=== PATIENT | female | born 1980 | race Caucasian/White ===

== ENCOUNTER → 2017-12-25 12:21 | Outpatient (CLI) | payer BC, SELFPAY ==
--- NOTE | 2017-12-25 12:24 | XR_ITS ---
XR ankle LT min 3V HISTORY: Pain ITS.REASON: surgery on left distal fibular 2013/ having pain. ORDERING PHYSICIAN: Harjinder Quezada MD PATIENT AGE: 37 years Comparison: 01/03/2013 FINDINGS: No acute fracture or dislocation is evident. There is a longitudinal screw within the distal aspect of the fibula as before. There is a faint zone of lucency along the proximal aspect of the screw not readily apparent on the previous exam which could indicate some mild loosening. Study is otherwise unremarkable. IMPRESSION: Faint zone of lucency along the proximal aspect of the screw within the distal fibula nonspecific but may be seen with loosening or infection.
[2017-12-25 14:23] LABS: Basophils % 0.4 % (0.1-2.0); Eosinophils # 0.2 K/mm3 (0.0-0.4); Eosinophils % 2.3 % (0.1-12.0); Hematocrit 40.9 % (37.0-47.0); Hemoglobin 13.7 g/dL (12.2-16.2); Lymphocytes # 2.5 K/mm3 (0.7-4.5); Lymphocytes % 34.5 K/mm3 (10-50); Mean Corpuscular HGB Conc 33.6 g/dL (31.8-35.4); Mean Corpuscular Hemoglobin 30.8 pg (27.0-31.2); Mean Corpuscular Volume 91.8 fl (81-99); Mean Platelet Volume 7.2 fl (7.4-10.4); Monocytes # 0.3 K/mm3 (0.1-1.0); Monocytes % 4.7 % (1.7-9.3); Neutrophils # 4.2 K/mm3 (1.8-7.8); Neutrophils % 58.1 % (37.0-80.0); Platelet Count 300 K/mm3 (142-424); Red Blood Count 4.46 M/mm3 (4.20-5.40); Red Cell Distribution Width 13.8 % (11.5-17.5); White Blood Count 7.2 K/mm3 (4.8-10.8)
[2017-12-25 14:47] LABS: Urine Pregnancy, HCG Qual. Negative (Negative)
[2017-12-25 15:36] LABS: Erythrocyte Sedimentation Rate 32 mm/hr (0-20)
[2017-12-25 18:05] LABS: Anion Gap 12.4 mEq/L (5-15); Blood Urea Nitrogen 13 mg/dL (7-18); C-Reactive Protein 0.4 mg/L (0.0-0.9); Calcium 9.2 mg/dL (8.5-10.1); Carbon Dioxide 29 mmol/L (21.0-32.0); Chloride 104 mmol/L (98-107); Creatinine,Serum 0.66 mg/dL (0.55-1.02); Estimated Glomerular Filt Rate 100 ml/min (>60); GFR (African American) 121 ML/MIN (>60); Glucose 80 mg/dL (74-106); Potassium 4.4 mmoL/L (3.5-5.1); Sodium 141 mmol/L (136-145)
== END ==
PROVIDERS: Visit Provider Orthopaedic Surgery
DX: M25.572 Pain in left ankle and joints of left foot (principal)
CPT/HCPCS: 36415; 73610; 80048; 81025; 85025; 85651; 86140

== ENCOUNTER 2018-01-25 12:10 | Outpatient (RCR) | payer BC, SELFPAY | END 2018-01-29 14:12 | disposition home or self-care (01) | LOC: PT 12:10 | PROVIDERS: Visit Provider Orthopaedic Surgery | DX: Z09 Encounter for follow-up examination after completed treatment for conditions other than malignant neoplasm (principal); M25.572 Pain in left ankle and joints of left foot; Z87.81 Personal history of (healed) traumatic fracture; T84.7XXA Infection and inflammatory reaction due to other internal orthopedic prosthetic devices, implants and grafts, initial encounter | CPT/HCPCS: 97760 ==

== ENCOUNTER → 2018-03-06 10:14 | Outpatient (CLI) | payer BC, SELFPAY ==
--- NOTE | 2018-03-06 10:43 | XR_ITS ---
XR ankle LT min 3V HISTORY: ITS.REASON: sp lt ankle hardware removal 01/22/18 ORDERING PHYSICIAN: Harjinder Quezada MD PATIENT AGE: 38 years Comparison: 12/25/2017 FINDINGS: There is been interval removal of the screw within the lateral malleolus. Soft tissue calcification is present around the tip of the lateral malleolus. There is good alignment with no fracture or dislocation. IMPRESSION: Interval screw removal of the lateral malleolus with surrounding soft tissue calcification at the tip of the lateral malleolus.
== END ==
PROVIDERS: Visit Provider Orthopaedic Surgery
DX: Z09 Encounter for follow-up examination after completed treatment for conditions other than malignant neoplasm (principal)
CPT/HCPCS: 73610

== ENCOUNTER 2018-04-15 15:30 | Outpatient (RCR) | payer BC, SELFPAY ==
--- NOTE | 2018-03-11 15:42 | HMH.PTOPEV ---
PT Outpatient Evaluation Rehab PT Outpatient Evaluation Start: 03/11/18 13:57 Freq: Status: Active Protocol: Document 03/11/18 15:13 PHOJOHNNA (Rec: 03/11/18 15:42 PHORNE [id number]) Electronically Signed By Lul Carson, PT 03/11/18 15:13 Outpatient Therapy Subjective History Subjective History Pt is a 38 yowf s/p left ankle removal of hardware on January 22. Pt reports breaking her left ankle 2 years prior, and has been immobilized in a CAM boot for 6 weeks. Pt reports pain in the left lateral mallelous and numbness and tingling along dorsal foot and toes. Pt denies pain at the moment but states that the worst pain is 5/10. Pt ambulated with an air cast, antalgic gait and decreased stance time on the left foot. Chief Complaint Pain Stiff Swelling Gives out/Unstable Symptom Type Ache Dull Numbness Tingling Symptoms Relieved By Rest/Positioning Ice Symptoms Aggravated By Standing Physical Activity Walking Prior Functional Limitations None Current Functional Limitations Housework Standing Recreation Activity Walking Stairs Balance Symptom Description Intermittent Level of pain today (0-10) 0 Pain scale - at its best (0-10) 0 Pain scale - at its worst (0-10) 5 Ankle/Foot Eval Gait Observation General Gait Pattern Observation Antalgic Gait Decrease Weight Bear (L) Assistive Device Ambulation Assistive Device None Palpation Tenderness left Ankle/Foot Palpation Findings Tenderness Ankle/Foot Palpation Overall Comment Pt reports tenderness over distal fibula ATF TTP positive ROM Ankle/Foot Dorsiflexion w/Knee Extended 0-20 Active Range Motion (degrees) Ankle/Foot Plantar Flexion Active Range 0-20 of Motion (degrees) Ankle/Foot Eversion Active Range of 0-22 Motion (degrees)
== END 2018-04-15 15:35 | disposition home or self-care (01) ==
LOC: PT 15:30
PROVIDERS: Visit Provider Orthopaedic Surgery
DX: M25.572 Pain in left ankle and joints of left foot (principal)
CPT/HCPCS: 97010; 97014; 97016; 97033; 97110; 97140; 97163; G0283

== ENCOUNTER → 2018-04-18 10:04 | Outpatient (CLI) | payer BC, SELFPAY ==
--- NOTE | 2018-04-18 10:09 | XR_ITS ---
XR ankle LT min 3V HISTORY: Follow-up hardware removal, ankle pain ITS.REASON: sp LT ankle hardware removal DOS 01/22/18 ORDERING PHYSICIAN: Harjinder Quezada MD PATIENT AGE: 38 years Comparison: 03/06/2017 FINDINGS: There remains good alignment of the ankle with preservation of the ankle mortise. Lucency present in the distal fibula from recent hardware removal. Soft tissue calcification once again noted distal to the lateral malleolus. IMPRESSION: As above, no change with no acute finding status post hardware removal with some soft tissue calcification
== END ==
PROVIDERS: Visit Provider Orthopaedic Surgery
DX: Z09 Encounter for follow-up examination after completed treatment for conditions other than malignant neoplasm (principal); M25.572 Pain in left ankle and joints of left foot
CPT/HCPCS: 73610

== ENCOUNTER → 2018-11-19 14:48 | Outpatient (CLI) | payer BC, SELFPAY ==
--- NOTE | 2018-11-19 14:49 | US_ITS ---
PROCEDURE: US TRANSVAGINAL CLINICAL INDICATION: us t/v- pelvic pain Pelvic pain with periods COMPARISON: No exams were available for comparison FINDINGS: The uterus is 9 x 5 x 5 cm. Combined endometrial thickness is 12 mm. Nabothian cysts are present. The right ovary is 3.6 x 1.6 cm. The left ovary is 4 x 2 cm. No cul-de-sac fluid. No adnexal mass. There is bilateral ovarian blood flow. IMPRESSION: Mildly thickened endometrium otherwise negative pelvic ultrasound. Dictated by: Francisco Hansen MD 11/19/2018 18:22 Electronically signed by Francisco Hansen MD in [place] 11/19/2018 18:22
== END ==
PROVIDERS: PCP Pediatrics; Visit Provider Obstetrics & Gynecology
DX: R10.2 Pelvic and perineal pain (principal)
CPT/HCPCS: 76830

== ENCOUNTER → 2018-12-30 15:13 | Outpatient (CLI) | payer BC, SELFPAY ==
[2018-12-30 15:45] LABS: Basophils # 0.1 K/mm3 (0-0.2); Basophils % 0.6 % (0.1-2.0); Eosinophils # 0.1 K/mm3 (0.0-0.4); Eosinophils % 1.4 % (0.1-12.0); Hematocrit 42.3 % (37.0-47.0); Hemoglobin 13.7 g/dL (12.2-16.2); Lymphocytes # 2.7 K/mm3 (0.7-4.5); Lymphocytes % 28.3 % (10-50); Mean Corpuscular HGB Conc 32.4 g/dL (31.8-35.4); Mean Corpuscular Hemoglobin 30.4 pg (27.0-31.2); Mean Corpuscular Volume 93.9 fl (81-99); Mean Platelet Volume 7.8 fl (7.4-10.4); Monocytes # 0.4 K/mm3 (0.1-1.0); Monocytes % 4.2 % (1.7-9.3); Neutrophils # 6.3 K/mm3 (1.8-7.8); Neutrophils % 65.6 % (37.0-80.0); Platelet Count 339 K/mm3 (142-424); Red Blood Count 4.51 M/mm3 (4.20-5.40); Red Cell Distribution Width 13.8 % (11.5-17.5); White Blood Count 9.6 K/mm3 (4.8-10.8)
[2018-12-30 17:36] LABS: Alanine Aminotransferase 19 U/L (12-78); Albumin Level 3.8 gm/dL (3.4-5.0); Albumin/Globulin Ratio 1.2 (1.1-1.8); Alkaline Phosphatase 81 U/L (46-116); Anion Gap 14.9 mEq/L (5-15); Aspartate Amino Transferase 21 U/L (15-37); Bilirubin,Total 0.6 mg/dL (0.2-1.0); Blood Urea Nitrogen 17 mg/dL (7-18); Calcium 9.6 mg/dL (8.5-10.1); Carbon Dioxide 26 mmol/L (21.0-32.0); Chloride 102 mmol/L (98-107); Creatinine,Serum 0.87 mg/dL (0.55-1.02); Estimated Glomerular Filt Rate 72 ml/min (>60); GFR (African American) 88 ML/MIN (>60); Globulin 3.3 gm/dl (1.3-3.2); Glucose 82 mg/dL (74-106); HCG,Quantitative 0 mIU/mL; Potassium 3.9 mmoL/L (3.5-5.1); Sodium 139 mmol/L (136-145); Total Protein,Serum 7.1 gm/dL (6.4-8.2)
== END ==
PROVIDERS: Visit Provider Obstetrics & Gynecology
DX: Z01.818 Encounter for other preprocedural examination (principal); N92.0 Excessive and frequent menstruation with regular cycle; R10.2 Pelvic and perineal pain; M54.9 Dorsalgia, unspecified
CPT/HCPCS: 36415; 80053; 84702; 85025

== ENCOUNTER → 2019-01-29 16:09 | Outpatient (CLI) | payer BC, SELFPAY ==
[2019-01-29 16:24] LABS: Basophils % 0.4 % (0.1-2.0); Eosinophils # 0.2 K/mm3 (0.0-0.4); Eosinophils % 1.8 % (0.1-12.0); Hematocrit 43.6 % (37.0-47.0); Hemoglobin 14.1 g/dL (12.2-16.2); Lymphocytes # 3.2 K/mm3 (0.7-4.5); Lymphocytes % 38.6 % (10-50); Mean Corpuscular HGB Conc 32.4 g/dL (31.8-35.4); Mean Corpuscular Hemoglobin 29.8 pg (27.0-31.2); Mean Corpuscular Volume 91.9 fl (81-99); Monocytes # 0.4 K/mm3 (0.1-1.0); Monocytes % 4.3 % (1.7-9.3); Neutrophils # 4.5 K/mm3 (1.8-7.8); Neutrophils % 54.8 % (37.0-80.0); Platelet Count 337 K/mm3 (142-424); Red Blood Count 4.75 M/mm3 (4.20-5.40); Red Cell Distribution Width 13.5 % (11.5-17.5); White Blood Count 8.2 K/mm3 (4.8-10.8)
[2019-01-29 16:42] LABS: Urine Pregnancy, HCG Qual. Negative (Negative)
[2019-01-29 18:29] LABS: Alanine Aminotransferase 19 U/L (12-78); Albumin/Globulin Ratio 1.2 (1.1-1.8); Alkaline Phosphatase 75 U/L (46-116); Anion Gap 14.1 mEq/L (5-15); Aspartate Amino Transferase 21 U/L (15-37); Bilirubin,Total 0.5 mg/dL (0.2-1.0); Blood Urea Nitrogen 17 mg/dL (7-18); Calcium 9.2 mg/dL (8.5-10.1); Carbon Dioxide 26 mmol/L (21.0-32.0); Chloride 104 mmol/L (98-107); Estimated Glomerular Filt Rate 93 ml/min (>60); GFR (African American) 113 ML/MIN (>60); Globulin 3.4 gm/dl (1.3-3.2); Glucose 78 mg/dL (74-106); Potassium 4.1 mmoL/L (3.5-5.1); Sodium 140 mmol/L (136-145); Total Protein,Serum 7.4 gm/dL (6.4-8.2)
== END ==
PROVIDERS: Visit Provider Obstetrics & Gynecology
DX: Z01.818 Encounter for other preprocedural examination (principal); R10.2 Pelvic and perineal pain; N92.0 Excessive and frequent menstruation with regular cycle
CPT/HCPCS: 36415; 80053; 81025; 85025

== ENCOUNTER 2019-01-31 08:09 | Inpatient (IN) ==
--- NOTE | 2019-01-31 10:23 | Progress Note ---
[facility] Anesthesia Checklist - Patient Identification Patient Identification: Arm Band, Verbal (Name & ) - Structural Data Admitted From: Home Planned Operative Procedure/s: [facility] Consent for Planned Operative Procedure(s) Verified: Yes Verified Documents: History and Physical - NPO Status Verified Time NPO: 00:00 - Additional verifications Patient : No Anesthesia Reactions: No Hx Blood Transfusions: No Blood Transfusion Reaction: No Cephalosporin Allergy: No Previous Colonoscopy: No - Cardiovascular Assessment Heart Sounds: S1 & S2 Pulse Strength: Baseline Pulse Rhythm: Regular Peripheral Edema: Yes - Airway Assessment C-Spine Mobility Assessed: No TMJ Mobility Assessed: No Dentition: Good Dentition - Neurological Assessment Level of Consciousness: Awake, Alert, Appropriate Hx Seizures: No Numbness or tingling in extremities: No - Anesthesia Plan Anesthesia Risk discussed: Yes Anesthesia Plan: Verified ASA Class: II Anesthesia Type: General [facility] History I have reviewed the patient's past medical history: Yes Medical History: Reports:: Anxiety, Asthma, Depression Denies:: Cancer, Diabetes Mellitus Type 1, Diabetes Mellitus Type 2, Hyperlipidemia, Hypertension, Internal Pacemaker, MRSA, Seizures *Have you ever received a pneumonia vaccine?: No *Have you received a flu vaccine this season?: No Other Medical History: Denies: Blood Transfusion Reaction Anesthesia experience/problems:: none Laterality Cases: Left: Other, Bilateral: Tonsillectomy Other Surgeries: Yes: Appendectomy, Cholecystectomy, . No: Pacemaker Amputation: No Fractures: Yes (2017) - *Social History Educational Level: Completed Graduate School Smoking Status: Never smoker Alcohol Intake: current Alcohol Intake Frequency:: holidays/special occasions only Substance Use Type: denies use *Occupational Status:: other Housing: house Household Members: spouse *Travel in the last 8 weeks: None - Psychiatric History Pschychiatric History:: Reports:: Anxiety, Depression Family Hx:: Cancer, Coronary Artery Disease, Diabetes, Hyperlipidemia, Hypertension, Substance abuse
--- NOTE | 2019-01-31 13:17 | Progress Note ---
[facility] Anesthesia Record Part I Intake, IV Amount: 1,300 Estimated blood loss (mL): 300 Urine output (mL): 50 Blood Products used (#): none Blood Pressure: 136/85 SaO2: 98 Pulse Rate: 78 Respiratory Rate: 20 Temperature: 98.5 F Patient is:: Drowsy, Nasal O2, Stable Stable to PACU at:: 13:08
--- NOTE | 2019-01-31 13:18 | Progress Note ---
[facility] Anesthesia Record Part II Discharge Time: 13:38 Destination: Medical Surgical Department PACU nurse assessment reviewed?: Yes Patient Condition:: Good Anesthesia Complications:: None Swallowing reflex intact?: Yes Cyanosis?: No
--- NOTE | 2019-01-31 13:19 | Operative Note ---
Date of procedure: 01/31/19 Pre-op Diagnosis:: 1. Pelvic pain 2. Heavy menstrual bleeding 3. Endometriosis 4. Pelvic adhesions Post-op Diagnosis:: same Procedure performed:: Exploratory laparotomy, supracervical hysterectomy, Left salpingo-oophorectomy, lysis of adhesions Surgeon:: Zuleika Coker MD Trade Show Specialist(s):: Christianne Perdue RADIO REPAIR TEACHER:: Brayan Garyty Anesthesia: GETA Estimated blood loss (mL): 300 Operative findings:: pelvic adhesions, endometriosis, grossly normal ovaries bilaterally Operative note:: The patient was taken to the operating room and general anesthesia was administered without difficulty. She was prepped and draped in the supine position. A Pfannenstiel skin incision was made approximately 2 cm above the pubic symphysis with a scalpel and carried down to the underlying layer of fascia. The fascia was incised in the midline and extended laterally sharply. The rectus muscles were sharply dissected off the fascia and in the midline. The peritoneum was turned and sharply, with good visualization of the underlying structures. The peritoneal incision was extended bluntly. A survey of the patient's pelvis and abdomen revealed the findings noted above. At this time, the patient was placed in Trendelenburg and a Shade retractor was placed in the abdomen; the bowel was packed with moist laparotomy sponges. A double tooth tenaculum was placed on the uterine fundus and the uterus was elevated out of the pelvis. No fibroids or other visible uterine lesions were noted. The round ligaments were identified and transected and suture-ligated. The anterior lip of the broad ligament was dissected medially on both sides and the bladder flap was created digitally. There were dense adhesions from the bladder to the lower uterine segment, requiring an excessive amount of adhesion dissection in creating the bladder flap. The posterior leaf of the broad ligament was dissected until the ureters were able to be identified on either side and noted to be free of the forthcoming adnexal pedicles. Infundibulopelvic ligaments were doubly clamped transected and suture ligated on either side, with excellent hemostasis noted. The fallopian tubes on either side were clamped transected and suture ligated. The uterine arteries were skeletonized on either side, and were clamped, transected and suture ligated with excellent hemostasis. The bladder flap was further bluntly dissected off the lower uterine segment with excellent hemostasis and without injury to the bladder. The cardinal and uterosacral ligaments were clamped transected and suture ligated on both sides and the pedicles continued down the very long cervix, however the distal end of the cervix was concerning for ureteral injury, so the uterus was amputated midway down the length of the cervix. The endocervix was cauterized and the abdominal portion of the cervix was oversewn with 0-vicryl sutures. The pelvis was copiously irrigated with a solution of sterile water. All pedicles were reexamined and remained hemostatic. The left ovary and fallopian tube were excised using the Enseal, and the specimen sent for pathology. All instruments were removed from the patient's abdomen. The peritoneum was closed with 2-0 Vicryl in a running fashion. The fascia was closed with 0 Vicryl in a running fashion. The skin was closed with josefa. The patient tolerated the procedure well; sponge/lap/needle and instrument counts were correct 2. She was taken to the recovery room awake in stable condition. Estimated blood loss: 300 cc. Condition: stable Disposition: PACU Specimens:: uterus, left fallopian tube and ovary Complications:: none
[2019-02-01 06:14] LABS: Anion Gap 17.1 mEq/L (5-15); Calcium 8.3 mg/dL (8.5-10.1)
[2019-02-01 06:29] LABS: Eosinophils # 0.1 K/mm3 (0.0-0.4); Red Cell Distribution Width 13.7 % (11.5-17.5)
[2019-02-01 07:12] LABS: Basophils % 0.3 % (0.1-2.0); Eosinophils % 0.9 % (0.1-12.0); Hematocrit 35.2 % (37.0-47.0); Lymphocytes # 2.4 K/mm3 (0.7-4.5); Lymphocytes % 24.3 % (10-50); Mean Corpuscular Volume 91.9 fl (81-99); Mean Platelet Volume 7.7 fl (7.4-10.4); Monocytes # 0.7 K/mm3 (0.1-1.0); Monocytes % 6.5 % (1.7-9.3); Neutrophils # 6.8 K/mm3 (1.8-7.8); Neutrophils % 67.9 % (37.0-80.0); Platelet Count 327 K/mm3 (142-424); Red Blood Count 3.83 M/mm3 (4.20-5.40); White Blood Count 9.9 K/mm3 (4.8-10.8)
[2019-02-01 07:31] LABS: Hemoglobin 11.6 g/dL (12.2-16.2)
--- NOTE | 2019-02-01 11:58 | Progress Note ---
Internal Medicine - PN: Subj *Date: 02/01/19 *Time: 11:55 Interval history: POD #1 supracervical hysterectomy and LSO No unusual complaints Ambulating and voiding without difficulty Tolerating liquid diet Pain control has not been optimal with oxycodone; planning to try dilaudid with next dose Exam Vital signs and Labs for Last 24 Hours: Temp Pulse Resp BP Pulse Ox 97.4 F L 81 16 121/70 98 02/01/19 08:00 02/01/19 08:00 02/01/19 08:00 02/01/19 08:00 02/01/19 08:00 Laboratory Results - last 24 hr 01/31/19 10:40: Urine Color Yellow, Urine Appearance Clear, Urine pH 6.0, Ur Specific Belden 1.020, Urine Protein Negative, Urine Glucose (UA) Negative, Urine Ketones 1+, Urine Blood Negative, Urine Nitrate Negative, Urine Bilirubin Negative, Urine Urobilinogen 0.2, Ur Leukocyte Esterase Negative, Urine WBC 3-5, Urine Bacteria Trace 02/01/19 05:35: WBC 9.9, RBC 3.83 L, Hgb 11.6 L, Hct 35.2 L, MCV 91.9, MCH 30.4, MCHC 33.0, RDW 13.7, Plt Count 327, MPV 7.7, Neut % (Auto) 67.9, Lymph % (Auto) 24.3, Morris % (Auto) 6.5, Eos % (Auto) 0.9, Baso % (Auto) 0.3, Neut # (Auto) 6.8, Lymph # (Auto) 2.4, Morris # (Auto) 0.7, Eos # (Auto) 0.1, Baso # (Auto) 0.0 02/01/19 05:35: Sodium 141, Potassium 4.1, Chloride 104, Carbon Dioxide 24, Anion Gap 17.1 H, BUN 7 D, Creatinine 0.82, Estimated Creat Clear 135, Estimated GFR 78, Est GFR ( Amer) 94, Glucose 117 H, Calcium 8.3 L I & O for Last 24 hours: Intake & Output 01/29/19 01/30/19 01/31/19 02/01/19 11:59 11:59 11:59 11:59 Intake Total 1300 / 1300 Output Total 3750 / 3750 Balance -2450 / -2450 Weight 205 lb Narrative: CONSTITUTIONAL: no acute distress HEENT: mucous membranes moist PULMONARY: breathing unlabored without audible wheezes CV: no tachycardia or visible JVD; normal LE peripheral pulses ABD: soft, ND; appropriately tender but no rebound/guarding SKIN: incision well approximated with no drainage, erythema or induration EXT: 1+ edema LEs NEURO: alert/oriented, no altered mental status PSYCH: appropriate mood and demeanor without anxiety/depression Assessment and Plan (1) H/O hysterectomy with unilateral oophorectomy Current visit: Yes Status: Acute Category: Surgical Code(s): Z90.710 - Acquired absence of both cervix and uterus; Z90.721 - Acquired absence of ovaries, unilateral (2) Endometriosis determined by laparoscopy Current visit: Yes Status: Acute Category: Medical Code(s): N80.9 - Endometriosis, unspecified (3) Pelvic adhesions Current visit: Yes Status: Acute Category: Medical Code(s): N73.6 - Female pelvic peritoneal adhesions (postinfective) (4) Heavy menstrual bleeding Current visit: Yes Status: Acute Category: Medical Code(s): N92.0 - Excessive and frequent menstruation with regular cycle (5) Pelvic pain Current visit: Yes Status: Acute Category: Medical Code(s): R10.2 - Pelvic and perineal pain - Assessment and plan all Dx Assessment and Plan for all problems:: Continue routine postop care Trial of dilaudid for pain management Anticipate discharge home tomorrow
--- NOTE | 2019-02-01 15:11 | Pharmacy Consult Notes ---
[facility] Pharmacy VTE Monitoring - Patient Demographics Admission date: 01/31/19 Report Date: 02/01/19 Time: 15:11 Allergies/Adverse Reactions: Patient Allergies No Known Allergies Allergy (Verified 01/31/19 08:32) Height: 1.6 m Weight: 92.986 kg Patient Problems: Current Active Problems H/O hysterectomy with unilateral oophorectomy (Acute) Pelvic adhesions (Acute) Endometriosis determined by laparoscopy (Acute) Back pain (Acute) Heavy menstrual bleeding (Acute) Pelvic pain (Acute) Abnormal menstrual periods (Acute) - VTE Risk Labs: VTE Related Lab Results Hgb 11.6 g/dL (12.2-16.2) L 02/01/19 05:35 Hct 35.2 % (37.0-47.0) L 02/01/19 05:35 Plt Count 327 K/mm3 (142-424) 02/01/19 05:35 BUN 7 mg/dL (7-18) D 02/01/19 05:35 Creatinine 0.82 mg/dL (0.55-1.02) 02/01/19 05:35 Estimated Creat Clear 135 mL/min (50-200) 02/01/19 05:35 - Prophylaxis VTE Prophylaxis Ordered?: Yes Types of VTE Prophylaxis: IPCS Thigh High Location of Applied Device: Bilateral Lower Extremeties
--- NOTE | 2019-02-02 11:32 | Discharge Summary ---
General - General Admission date:: 01/31/19 Discharge date: 02/02/19 HPI HPI: Admitted for surgical management of endometriosis and pelvic pain S/P supracervical hysterectomy Discharged home on POD #2 in stable condition Tolerating regular diet, ambulating and voiding without difficulty No unusual complaints Objective Vital signs: Temp Pulse Resp BP Pulse Ox 98.6 F 77 16 124/56 L 100 02/02/19 08:45 02/02/19 08:45 02/02/19 08:45 02/02/19 08:45 02/02/19 08:45 Narrative: CONSTITUTIONAL: no acute distress HEENT: mucous membranes moist PULMONARY: breathing unlabored without audible wheezes CV: no tachycardia or visible JVD; normal LE peripheral pulses ABD: soft, ND; appropriately tender but no rebound/guarding SKIN: incision well approximated with no drainage, erythema or induration EXT: 1+ edema LEs NEURO: alert/oriented, no altered mental status PSYCH: appropriate mood and demeanor without anxiety/depression DS: Diagnosis - Discharge Diagnosis (1) H/O hysterectomy with unilateral oophorectomy Status: Acute (2) Endometriosis determined by laparoscopy Status: Acute (3) Pelvic adhesions Status: Acute (4) Heavy menstrual bleeding Status: Acute (5) Pelvic pain Status: Acute Discharge Plan - Patient Discharge Instructions ACTIVITY: Continue current activity DIET: regular diet Additional Instructions: no heavy lifting, no strenuous activity, no driving for 2 weeks or while taking prescription narcotics. Patient Instructions: Hysterectomy -- Open Surgery, DI for Hysterectomy, DI for Surgical Site Infection, DI for Postoperative Pain - Follow up Plan Follow up with: Zuleika Coker MD [Staff Physician] - Disposition: Home, Self-Jail Medications: Home Medications Medication Instructions Recorded Confirmed Type albuterol sulfate HFA 90 2 puff INHALATION Q6H 03/05/17 01/31/19 History mcg/actuation aerosol inhaler Hydromorphone HCl [Dilaudid 2mg 2 mg PO Q3HP PRN #30 tab 02/02/19 Rx tablet] Ketorolac Tromethamine [Toradol 10 mg PO Q6H 1 Days #30 tab 02/02/19 Rx 10mg tablet] Prescriptions/Medication Reconciliation: New Ketorolac Tromethamine [Toradol 10mg tablet] 10 mg PO Q6H 1 Days #30 tab Hydromorphone HCl [Dilaudid 2mg tablet] 2 mg PO Q3HP PRN #30 tab PRN Reason: Moderate To Severe Pain Continued albuterol sulfate HFA 90 mcg/actuation aerosol inhaler 2 puff INHALATION Q6H - Problem Reconciliation Problems Reviewed?: Yes
== END 2019-02-02 12:00 | disposition home or self-care (01) | DRG 743 ==
LOC: OR 08:09 → OB 14:09
PROVIDERS: ADMIT Obstetrics & Gynecology; ATTEND Obstetrics & Gynecology
CPT/HCPCS: J2405

== ENCOUNTER 2020-11-12 18:25 | Emergency (ER) | payer BC, SELFPAY ==
[2020-11-12 18:26] VITALS: BP 128/82; PULSE 89; RESP 28; TEMP 36.9; O2SAT 93; BMI 38.2
--- NOTE | 2020-11-12 18:27 | ECG_ITS ---
APPROVED REPORT Exam: Resting ECG HR:90 bpm ECG Measurements Heart Rate 90 AXES ND 126 P 48 QRSd 78 QRS 6 QT 340 T 35 QTc 415 Conclusion Normal sinus rhythm Normal ECG Electronically signed by : Brayan Garcia MD 11/13/2020 21:11:04
--- NOTE | 2020-11-12 18:36 | XR_ITS ---
PROCEDURE INFORMATION: Exam: XR Chest Exam date and time: 11/12/2020 6:36 PM Age: 40 years old Clinical indication: Pain; On breathing; Additional info: SOA, cough TECHNIQUE: Imaging protocol: XR of the chest. Views: 1 view. COMPARISON: No relevant prior studies available. FINDINGS: Lungs: Atelectasis and/or early infiltrative changes noted within both lung bases. Pleural spaces: There is no evidence of pneumothorax. There are no pleural effusions present. Heart/Mediastinum: Unremarkable. No cardiomegaly. Bones/joints: Unremarkable. IMPRESSION: Atelectasis and/or early infiltrative changes noted within both lung bases.
--- NOTE | 2020-11-12 18:38 | PC.NURSE ---
pt refusing covid swab, ER aware. Pt states she does not need a covid swab she has covid symptoms and her is positive states she is wanting the infusion . Explained to pt she could not have the infusion without a positive covid swab. Notified ER data deliverables manager of the above.
--- NOTE | 2020-11-12 18:40 | HMH.EDSOB ---
ED Disposition Clinical Impression: Asthma with exacerbation Qualifiers: Asthma severity: mild Asthma persistence: intermittent Qualified Code(s): J45.21 - Mild intermittent asthma with (acute) exacerbation Disposition: Home, Self-Care Condition on Discharge: unchanged, left AMA Instructions: DI for Chronic Bronchitis - Critical Care Critical Care Time: No Attestation: On , the high probability of a clinically significant, sudden or life threatening deterioration of the following system(s) required my full and direct attention, intervention and personal management. The time I documented below is in addition to time spent performing reported procedures but includes the following listed in this critical care notation. Medical Decision Making - Medical Records Medical records reviewed: Yes: I reviewed the patient's medical records. - Mir Inquiry Pt receiving controlled substance: No Vital Signs: 11/12/20 18:26 Temperature 98.4 F Temperature Source Oral Pulse Rate [Right Radial] 89 Respiratory Rate 28 H Blood Pressure [Right Arm] 128/82 Blood Pressure Mean [Right Arm] 97 Blood Pressure Source [Right Arm] Automatic Cuff Blood Pressure Position [Right Arm] Sitting 02 Sat by Pulse Oximetry 93 L Oxygen Delivery Method Room Air - Lab Data Lab Results 11/12/20 18:34: WBC 4.3 L, RBC 4.87, Hgb 15.1, Hct 43.9, MCV 90.0, MCH 30.9, MCHC 34.3, RDW 13.2, Plt Count 262, MPV 7.0 L, Neut % (Auto) 85.2 H, Lymph % (Auto) 10.4, Logan % (Auto) 4.0, Eos % (Auto) 0.2, Baso % (Auto) 0.2, Neut # (Auto) 3.7, Lymph # (Auto) 0.5 L, Logan # (Auto) 0.2, Eos # (Auto) 0.0, Baso # (Auto) 0.0 Result diagrams: 11/12/20 18:34 Orders (Tests/Meds): ED MEDICATIONS Generic Name Dose Route Start Last Admin Trade Name Freq PRN Reason Stop Dose Admin Sodium Chloride 10 ml 11/12/20 18:38 Sodium Chloride 0.9% 10ml Vial IV 12/12/20 18:37 NEEDED PRN to Dilute Lorazepam inj Discontinued Medications Generic Name Dose Route Start Last Admin Trade Name Freq PRN Reason Stop Dose Admin Lorazepam 1 mg 11/12/20 18:38 Lorazepam 2mg/Ml Vial IV 11/12/20 18:39 ONCE ONE ORDERS Category Date Time Status XR chest portable Stat Exams 11/12/20 18:36 Taken CMP [Comprehensive Metabolic Panel] Stat Lab 11/12/20 18:34 Received Complete Blood Count Auto Diff Stat Lab 11/12/20 18:34 Results Lactic Acid Stat Lab 11/12/20 18:34 Received Rapid PCR Covid and Flu A/B Stat Lab 11/12/20 18:38 Ordered Blood Culture Stat Micro 11/12/20 18:34 Received 12-lead EKG Request [ECG Request by /Osbaldo] Stat Y 11/12/20 18:27 Ordered - ECG Data Tracing #1 I reviewed this ECG and interpreted as documented below: ECG initial impression date: 11/12/20 ECG initial impression time: 18:22 ECG normal with no acute: arrhythmias, ischemia, conduction abnormalities, chamber hypertrophy Normal Sinus Rhythm: Yes - Reevaluation(s) Time: 18:57 Reevaluation #1: On reevaluation, the patient is refusing Covid swab at this time. She states that she just wants to be treated for Covid virus, without obtaining a positive test. I did explain to the patient that part of the treatment and work-up will require a positive test in order to proceed further. We like to administer some medications that will help her respiratory status, however we do need to obtain a nasal swab. Patient states that she absolutely will not obtain a swab. She wants the medication down and she wants to leave. I did explain to the patient that per guidelines she requires a positive test. Patient continues to refuse. Patient is leaving AGAINST MEDICAL ADVICE. She did get extremely hostile with the staff who were patiently trying to explain the risks of not completing treatment. Patient is alert and has full decision-making capability. Patient has left without completing treatment. Medical Decision Narrative: 40-year-old female presented to the emergency
[2020-11-12 18:52] LABS: Chloride 101 mmol/L (98-107)
[2020-11-12 18:53] LABS: Potassium 4.4 mmoL/L (3.5-5.1); Sodium 138 mmol/L (136-145)
[2020-11-12 18:55] LABS: Alanine Aminotransferase 93 U/L (12-78); Alkaline Phosphatase 85 U/L (38-126); Aspartate Amino Transferase 54 U/L (14-36); Basophils % 0.2 % (0.1-2.0); Bilirubin,Total 0.2 mg/dl (0.2-1.3); Blood Urea Nitrogen 8 mg/dl (7-17); Creatinine Clearance Estimated 191 mL/min (50-200); Eosinophils % 0.2 % (0.1-12.0); Estimated Glomerular Filt Rate 110 ml/min (>60); GFR (African American) 133 ML/MIN (>60); Hematocrit 43.9 % (37.0-47.0); Hemoglobin 15.1 g/dL (12.2-16.2); Lymphocytes # 0.5 K/mm3 (0.7-4.5); Lymphocytes % 10.4 % (10-50); Mean Corpuscular HGB Conc 34.3 g/dL (31.8-35.4); Mean Corpuscular Hemoglobin 30.9 pg (27.0-31.2); Monocytes # 0.2 K/mm3 (0.1-1.0); Neutrophils # 3.7 K/mm3 (1.8-7.8); Neutrophils % 85.2 % (37.0-80.0); Platelet Count 262 K/mm3 (142-424); Red Blood Count 4.87 M/mm3 (4.20-5.40); Red Cell Distribution Width 13.2 % (11.5-17.5); White Blood Count 4.3 K/mm3 (4.8-10.8)
[2020-11-12 18:56] LABS: Albumin Level 4.4 g/dl (3.5-5.0); Albumin/Globulin Ratio 1.2 (1.1-1.8); Anion Gap 16.4 mEq/L (5-15); Calcium 9.4 mg/dl (8.4-10.2); Carbon Dioxide 25 mmol/L (22.0-30.0); Globulin 3.6 g/dL (1.3-3.2); Glucose 121 mg/dl (74-100)
[2020-11-12 18:57] LABS: MANUAL DIFFERENTIAL MANUAL DIFFERENTIAL (MANUAL DIFF)
[2020-11-12 19:03] LABS: Lactic Acid 1.8 mmol/L (0.7-2.1)
--- NOTE | 2020-11-12 19:11 | PC.NURSE ---
Alissa called and advised me that this patient was refusing a covid swab and refusing admission and questioning all treatment, I went to room 9 and spoke with patient. She did not have a known positive covid test but advised me she knew she had covid and just wanted treatment and did not want to be put on a fucking vent because we were killing people. I advised her that a covid swab was required for admissions and would be beneficial for her to have done so that we could chose the appropriate treatment course for her. She then advised me she knew it was all the government and she didn't understand why we just couldn't give her that infusion to help. I advised her that we had to have a known positive covid test and the patient needed to meet certain criteria in order to be eligible. Pt continued to shake her head and mumble things about the government. I advised patient at this time it would be in her best interest for her to let us covid swab her to make sure the appropriate treatment was given. Pt continued to say things about the government. I then again explained all the risks if the patient chose to leave without treatment. I explained that with her being SOA it could ultimately result in if she continued to get worse. Pt sats were 93% on 2lpm NC. PT advised again she would not be admitted because she did not trust medicine or the swabs. I explained to her that it was her right to refuse any treatment or admission but that if she did she would need to sign an AMA form. Dr. Hernandez had also already spoken with the patient about the risks on leaving with her continued SOA. I advised patient that if she was choosing to leave then I would need her to sign an AMA form that says she realizes the risks of leaving and we have explained them. PT signed form and left ER. As she was leaving Missy asked her to put her mask on, pt started swinging it in the air and laughing.
[2020-11-12 19:13] LABS: Lymphocytes % 7 % (10-50); Monocytes % 1 % (2-9); Neutrophils % 85 % (42-76); Platelet Estimate Normal; RBC Morphology Normal; Total Cells Counted 100
[2020-11-12 19:29] VITALS: BP 0/0; PULSE 93; RESP 20; TEMP 36.7; O2SAT 93
== END 2020-11-12 19:32 | disposition home or self-care (01) ==
PROVIDERS: Emergency Provider Emergency Medicine; PCP Pediatrics
DX: J45.21 Mild intermittent asthma with (acute) exacerbation (principal); F41.8 Other specified anxiety disorders
CPT/HCPCS: 71045; 80053; 83605; 85007; 85025; 87040; 93005; 99282